=== PATIENT | female | born 1940 | race African-American/Black ===

== ENCOUNTER → 2020-08-06 | Day surgery (SDC) | payer MEDICARE ==
[2020-08-04 11:25] LABS: BASOPHILS % 0.5 % (0.0-1.0); EOSINOPHILS # (AUTO) 0.3 (0.0-0.4); EOSINOPHILS % 3.9 % (0.0-6.0); HEMATOCRIT 35.1 % (34.2-44.1); LYMPHOCYTES # (AUTO) 1.9 (1.0-3.2); LYMPHOCYTES % 22.2 % (18.0-39.1); MEAN CORPUSCULAR HEMOGLOBIN 30.5 pg (28-32); MEAN CORPUSCULAR HGB CONC 31.3 g/dL (31-35); MEAN CORPUSCULAR VOLUME 97.2 fL (81-99); MONOCYTES # (AUTO) 0.6 (0.2-0.8); NEUTROPHILS # (AUTO) 5.7 (2.1-6.9); NEUTROPHILS % 66.2 % (38.7-80.0); PLATELET COUNT 250 x10e3/uL (140-360); RED BLOOD COUNT 3.61 x10e6/uL (3.6-5.1); RED CELL DISTRIBUTION WIDTH 13.3 % (11.7-14.4)
[~2020-08-06] MED LIST: ACETAMINOPHEN325 M1 PO; AMBIEN10 MG PO; ASPIRIN81 MG PO; ATENOLOL50 MG PO; BACLOFEN10 MG PO; FENTANYL CITRATE/PF 100MCG/2 ML INJ ONE; LASIX20 MG PO; LIDOCAINE HCL50 ML TOP; NIFEDIPINE20 MG PO; OMEPRAZOLE40 MG PO; POLYETHYLENE PO; PRAVACHOL40 MG PO; PREDNISOLO15 MG/5 ML PO; PROPOFOL IV EMULSION 10 MG/ML 20 ML VIAL ONE; REQUIP0.25 MG PO
[2020-08-06 15:08] VITALS: BP 132/47
--- NOTE | 2020-08-06 15:28 | Operative Report ---
DATE OF PROCEDURE: 08/06/2020 SURGEON: Osiel Salazar MD PROCEDURE: EGD with biopsies. INDICATIONS FOR PROCEDURE: Acid reflux, heartburn, bloating, black stools. MEDICATIONS: The patient was done under MAC, please see anesthesiologist's note. PROCEDURE IN DETAIL: With the patient in the left lateral decubitus position, a flexible fiberoptic Olympus gastroscope was introduced into the esophagus under direct visualization without any difficulty. There was some patchy erythema noted in distal esophagus. The scope was then advanced with ease into the stomach traversing a large hiatal hernia, measured approximately 6 cm. There was some patchy erythema noted in the antrum and the body. Biopsies were obtained and sent to stain for H. pylori. Moderate amount of retained undigested food was noted in the stomach, reflective of some gastroparesis. The pylorus was of normal contour and shape, was intubated with ease and the scope was advanced all the way to the second portion of the duodenum. Biopsies were obtained from the proximal second portion and the duodenal bulb to rule out sprue. The scope was then withdrawn back into the stomach and retroflexed, and the previously described large hiatal hernia was also noted in the retroflexed position. The scope was then straightened out, it was subsequently withdrawn, and the patient tolerated the procedure well. IMPRESSION: 1. Distal esophagitis, mild. 2. Large hiatal hernia. 3. Gastritis, biopsied, biopsies sent to stain for Helicobacter pylori. 4. Moderate amount of retained undigested food in stomach, reflective of some gastroparesis. 5. Rule out sprue. PLAN: Follow up histology. Increase omeprazole to 40 mg one p.o. before meals b.i.d. Osiel Salazar MD [facility] [place]/[facility] /[id number] cc: Gamal Pink MD
== END | disposition home or self-care (01) ==
LOC: OR 09:30
PROVIDERS: ATTEND Internal Medicine Gastroenterology
DX: K29.50 Unspecified chronic gastritis without bleeding (principal); K20.90 Esophagitis, unspecified without bleeding; K44.9 Diaphragmatic hernia without obstruction or gangrene; K31.84 Gastroparesis; Z88.0 Allergy status to penicillin; I10 Essential (primary) hypertension; K21.9 Gastro-esophageal reflux disease without esophagitis; K59.09 Other constipation; Z68.28 Body mass index [BMI] 28.0-28.9, adult; Z01.810 Encounter for preprocedural cardiovascular examination; Z01.812 Encounter for preprocedural laboratory examination; Z20.828 Contact with and (suspected) exposure to other viral communicable diseases
CPT/HCPCS: 36415; 43239; 85025; 93005; J2704; J3010; U0002